=== PATIENT | female | born 1995 | race Caucasian/White ===

== ENCOUNTER 2024-03-13 20:39 | Inpatient (IN) | payer OTHER ==
[2024-03-13 21:38] VITALS: BMI 36.0
[2024-03-13] MEDS ORDERED: Misoprostol 200 MCG TAB PR PRN (21:47)
[2024-03-13] MEDS ORDERED: Ibuprofen 800 MG TAB PO PRN (21:47)
[2024-03-13] MEDS ORDERED: Lidocaine 1% (PF) 30 ML VIAL SC PRN (21:47)
[2024-03-13] MEDS ORDERED: Methylergonovine 0.2 MG/ML VIAL IM PRN (21:47)
[2024-03-13] MEDS ORDERED: Acetaminophen 500 MG TAB PO PRN (21:47)
[2024-03-13] MEDS ORDERED: Tranexamic Acid 1,000 MG/10 ML VIAL IVP PRN (21:47)
[2024-03-13] MEDS ORDERED: Diphenoxylate HCl/Atropine Tablet PO PRN (21:47)
[2024-03-13] MEDS ORDERED: Promethazine HCl 25 MG/ML VIAL IM PRN (21:47)
[2024-03-13] MEDS ORDERED: hydrALAZINE 20 MG/ML VIAL SLOW IVP PRN (21:47)
[2024-03-13 22:22] LABS: Hematocrit 34.8 % (34.9-44.5); Mean Corpuscular HGB CONC 34.5 g/dL (32.0-36.0); Mean Corpuscular Hemoglobin 30.6 pg (27.0-33.0); Mean Corpuscular Volume 88.8 fl (81.6-98.3); Mean Platelet Volume 10.8 fl (7.4-10.4); Platelet Count 188 10x3/uL (150-450); RBC Distribution Width 14.4 % (11.5-14.5); Red Blood Cell (RBC) Count 3.92 10x6/uL (3.90-5.03); White Blood Cell (WBC) Count 7.8 10x3/uL (3.5-10.5)
[2024-03-13 22:32] LABS: Amphetamine Not Detected (NotDetected); Barbiturates Screen Not Detected (NotDetected); Benzodiazepine Screen Not Detected (NotDetected); Cocaine Metabolite Screen Not Detected (NotDetected); Methadone Not Detected (NotDetected); Methamphetamine Not Detected (NotDetected); Opiate Screen Not Detected (NotDetected); Oxycodone Screen Not Detected (NotDetected); Phencyclidine (PCP) Not Detected (NotDetected); THC/Cannabinoid Screen Not Detected (NotDetected); Tricyclic Screen Not Detected (NotDetected)
[2024-03-13] MEDS: Misoprostol 100 MCG TAB VAG SCH (22:42)
[2024-03-13 22:55] LABS: HBsAg Index 0.13 S/CO (0-0.99); Hep B Surf Ag - L&D Non-Reactive S/CO (NonReactive)
[2024-03-13 23:28] LABS: Syphilis Antibody Index 21.68 S/CO (<1.00 Non-Reactive)
[2024-03-13 23:46] LABS: Syphilis Antibody REACTIVE (Nonreactive)
[2024-03-14] MEDS ORDERED: Bicillin LA 2.4 MILL.UNITS/4 ML SYRINGE IM SCH (02:30)
[2024-03-14] MEDS: fentaNYL/Ropivacaine Epidural 100 ML ONE (05:43)
[2024-03-14] MEDS ORDERED: Ondansetron PF 4 MG/2 ML Vial IVP PRN ×2 (05:56→19:00)
[2024-03-14] MEDS ORDERED: Moisturizing Cream (Eucerin) 113 GM JAR TOP PRN (05:56)
[2024-03-14] MEDS ORDERED: Promethazine HCl 25 MG/ML VIAL IM PRN (05:56)
[2024-03-14] MEDS ORDERED: diphenhydrAMINE 50 MG/ML VIAL IVP PRN (05:56)
[2024-03-14] MEDS ORDERED: Naloxone HCl 0.4 mg/ml Vial IVP PRN ×2 (05:56)
[2024-03-14] MEDS ORDERED: ePHEDrine Sulfate 50 MG/10 ML VIAL SLOW IVP PRN (05:56)
[2024-03-14] MEDS ORDERED: Lactated Ringer's 500 ML IV PRN (05:56)
[2024-03-14] MEDS ORDERED: Communication Order-Pharmacy FS SCH (06:00)
[2024-03-14] MEDS ORDERED: fentaNYL 2 mcg/Ropivacaine 0.2% Epidural 100 ML CADD EPIDURAL SCH (06:00)
[2024-03-14] MEDS: Ondansetron PF 4 MG/2 ML Vial IVP PRN (07:17)
[2024-03-14] MEDS ORDERED: Lidocaine 1% (PF) 30 ML VIAL SC PRN (11:11)
[2024-03-14] MEDS: Oxytocin 30 units/NS 500 ML 500 ML IV SCH ×2 (11:53→18:40)
[2024-03-14] MEDS: Lactated Ringer's 1,000 ML IV SCH (11:54)
[2024-03-14] MEDS ORDERED: Preparation H Ointment 28 GM TUBE PR PRN (19:00)
[2024-03-14] MEDS ORDERED: Oxytocin 30 units/NS 500 ML 500 ML IV SCH (19:00)
[2024-03-14] MEDS ORDERED: hydrALAZINE 20 MG/ML VIAL SLOW IVP PRN (19:00)
[2024-03-14] MEDS ORDERED: Lanolin Ointment 7 GM TUBE TOP PRN (19:00)
[2024-03-14] MEDS ORDERED: Misoprostol 200 MCG TAB VAG PRN (19:00)
[2024-03-14] MEDS ORDERED: Bisacodyl 10 MG SUPP PR PRN (19:00)
[2024-03-14] MEDS ORDERED: Methylergonovine 0.2 MG/ML VIAL IM PRN (19:00)
[2024-03-14] MEDS ORDERED: Milk Of Magnesia 30 ML UDCUP PO PRN (19:00)
[2024-03-14] MEDS: Ibuprofen 800 MG TAB PO PRN (20:37)
[2024-03-14] MEDS: Bicillin LA 2.4 MILL.UNITS/4 ML SYRINGE IM SCH (20:38)
[2024-03-14] MEDS ORDERED: Bupivacaine 0.25% HCL 30 ML VIAL ONE (22:16)
[2024-03-14] MEDS: Docusate 100 MG CAP PO SCH (22:59)
[2024-03-14] MEDS: Cyclobenzaprine 10 MG TAB PO PRN (22:59)
[2024-03-15] MEDS: Acetaminophen 325 MG TAB PO PRN (04:06)
[2024-03-15] MEDS: Benzocaine-Menthol 82.5 ML CAN TOP PRN (04:07)
[2024-03-15] MEDS: Boostrix 0.5 ML (Tdap) VIAL (>/=7 yrs of age) IM ONE (08:35)
[2024-03-15] MEDS: Prenatal Vitamin 1 TAB PO SCH (09:05)
[2024-03-15] MEDS: Ibuprofen 800 MG TAB PO SCH ×2 (12:09→20:38)
[2024-03-15] MEDS: Acetaminophen 500 MG TAB PO SCH (13:37)
[2024-03-15] MEDS: Ketorolac Tromethamine 30 MG (1 mL) VIAL ONE (14:21)
[2024-03-15] MEDS ORDERED: Ketorolac Tromethamine 60 MG/2 ML VIAL IM SCH (14:30)
[2024-03-15] MEDS: Ketorolac Tromethamine 30 MG (1 mL) VIAL IVP SCH (15:33)
[2024-03-15] MEDS ORDERED: Methyl Salicylate/Menthol 85 GM TUBE TOP PRN (15:46)
[2024-03-15] MEDS: Albuterol 2.5 MG (3 mL) NEB NEB PRN (16:15)
[2024-03-15] MEDS: Lidocaine 4% Patch TD SCH (17:04)
[2024-03-15] MEDS: Methocarbamol 500 MG TAB PO SCH (18:12)
[2024-03-16] MEDS: Methocarbamol 500 MG TAB PO PRN (01:23)
[2024-03-16] MEDS ORDERED: Cyclobenzaprine 10 MG TAB PO PRN (02:00)
[2024-03-16] MEDS: Transdermal Patch Removal TOP SCH (04:23)
[2024-03-16] MEDS: Ibuprofen 800 MG TAB PO SCH (15:56)
[2024-03-17 08:24] VITALS: TEMP 98.4
[2024-03-17 15:24] VITALS: BP 117/77
== END 2024-03-17 17:59 | disposition home or self-care (01) | DRG 806 ==
LOC: CSHLD 20:39 → CSHPED 03-14 22:15
PROVIDERS: ADMIT Emergency Medicine; ATTEND Emergency Medicine
PROC: 3E0P7VZ Introduction of Hormone into Female Reproductive, Via Natural or Artificial Opening (ICD-10-PCS; 2024-03-13)
PROC: 10E0XZZ Delivery of Products of Conception, External Approach (ICD-10-PCS; principal; 2024-03-14)
PROC: 3E033XZ Introduction of Vasopressor into Peripheral Vein, Percutaneous Approach (ICD-10-PCS; 2024-03-14)
DX: O13.4 Gestational [pregnancy-induced] hypertension without significant proteinuria, complicating childbirth (principal); O98.12 Syphilis complicating childbirth; Z37.0 Single live birth; Z3A.37 37 weeks gestation of pregnancy; J45.909 Unspecified asthma, uncomplicated; O99.513 Diseases of the respiratory system complicating pregnancy, third trimester; F32.9 Major depressive disorder, single episode, unspecified; O99.413 Diseases of the circulatory system complicating pregnancy, third trimester; O76 Abnormality in fetal heart rate and rhythm complicating labor and delivery; R25.2 Cramp and spasm; O99.893 Other specified diseases and conditions complicating puerperium; A53.0 Latent syphilis, unspecified as early or late
CPT/HCPCS: 51702; 80306; 85027; 86593; 86780; 86850; 86900; 86901; 87340; 94640; J0561; J0665; J1885; J2405; J2590; J7120; J7611

== ENCOUNTER 2024-07-26 20:23 | Emergency (ER) | payer OTHER, SELFPAY | END 2024-07-26 23:45 | disposition left against medical advice (07) | LOC: CSHERS 20:23 | DX: Z53.21 Procedure and treatment not carried out due to patient leaving prior to being seen by health care provider (principal) ==

== ENCOUNTER 2024-07-27 13:23 | Emergency (ER) | payer BC, SELFPAY ==
[2024-07-27] MEDS ORDERED: Ketorolac Tromethamine 30 MG (1 mL) VIAL ONE (15:17)
== END 2024-07-27 18:36 | disposition home or self-care (01) ==
LOC: CSHERS 13:23
DX: M53.3 Sacrococcygeal disorders, not elsewhere classified (principal); R20.2 Paresthesia of skin; I10 Essential (primary) hypertension; F17.290 Nicotine dependence, other tobacco product, uncomplicated
CPT/HCPCS: 72148; 72220; 96372; 99284; J1885

== ENCOUNTER 2024-08-12 15:02 | Emergency (ER) | payer BC ==
[2024-08-12] MEDS ORDERED: Ketorolac Tromethamine 30 MG (1 mL) VIAL ONE (16:07)
[2024-08-12] MEDS ORDERED: Cyclobenzaprine 10 MG TAB ONE (16:08)
== END 2024-08-12 16:16 | disposition home or self-care (01) ==
LOC: CSHERS 15:02
DX: M54.50 Low back pain, unspecified (principal); I10 Essential (primary) hypertension; F17.290 Nicotine dependence, other tobacco product, uncomplicated
CPT/HCPCS: 96372; 99283; J1885